=== PATIENT | female | born 1960 | race Caucasian/White ===

== ENCOUNTER → 2024-09-30 07:56 | Outpatient (REF) | payer OTHER, SELFPAY | LOC: WDC 07:56 | PROVIDERS: ATTENDING PHYSICIAN Nurse Practitioner Primary Care | DX: Z12.31 Encounter for screening mammogram for malignant neoplasm of breast (principal); M85.89 Other specified disorders of bone density and structure, multiple sites | CPT/HCPCS: 77063; 77067; 77080 ==

== ENCOUNTER → 2024-12-11 14:30 | Outpatient (REF) | payer OTHER, SELFPAY ==
[2024-12-11 15:36] LABS: ALT (SGPT) 47 U/L (0-35); AST (SGOT) 31 U/L (14-36); Albumin 4.7 g/dl (3.5-5.0); Alkaline Phosphatase 84 U/L (38-126); Blood Urea Nitrogen 23 mg/dl (7-17); Calcium 10.1 mg/dl (8.4-10.2); Carbon Dioxide 27 mmol/L (22-30); Chloride 107 mmol/L (98-107); Glucose 117 mg/dl (70-99); Potassium 3.9 mmol/L (3.5-5.1); Sodium 143 mmol/L (135-145); Total Bilirubin 0.6 mg/dl (0.2-1.3); eGFR > 60.00
== END ==
LOC: RAD 14:30
PROVIDERS: ATTENDING PHYSICIAN Nurse Practitioner Primary Care
DX: R79.89 Other specified abnormal findings of blood chemistry (principal); R06.09 Other forms of dyspnea; M79.89 Other specified soft tissue disorders; Z01.818 Encounter for other preprocedural examination
CPT/HCPCS: 36415; 71275; 80053; 93970; Q9967

== ENCOUNTER 2024-12-11 19:18 | Inpatient (IN) | payer OTHER, SELFPAY ==
[2024-12-11] VITALS (8 sets, daily range): BP systolic 149–193; BP diastolic 89–119; BMI 26.4; BMI 25.4
[2024-12-11 17:18] LABS: % Basophils 1.1 % (0-2); % Immature Granulocytes 0.2 % (0-0.5); % Lymphocytes 21.2 % (20.5-51.1); % Monocytes 8.7 % (1.7-9.3); % Neutrophils 66.8 % (42.2-75.2); Absolute Basophils 0.1 10^3/uL (0-0.2); Absolute Eosinophils 0.2 10^3/uL (0-0.7); Absolute Lymphocytes 1.8 10^3/uL (1.2-3.4); Absolute Monocytes 0.7 10^3/uL (0.1-0.6); Absolute Neutrophils 5.6 10^3/uL (1.4-6.5); Hemoglobin 12.6 g/dL (12.0-16.0); Mean Corp Hgb Conc. 34.1 g/dL (33.0-37.0); Mean Corpuscular Hgb 31.3 pg (27.0-31.0); Mean Platelet Volume 9.4 fL (7.4-10.4); Nucleated Red Blood Cells % 0 %; Platelet Count 314 10^3/uL (130-400); Red Blood Cell Count 4.02 10^6/uL (4.20-5.40); Red Cell Dist. Width 12.5 % (11.5-14.5); White Blood Cell Count 8.4 10^3/uL (4.8-10.8)
[2024-12-11 17:27] LABS: APTT 24.4 Sec (23.4-35.0); INR 0.94; PT 12.9 Sec (11.4-14.6)
--- NOTE | 2024-12-11 17:38 | ED.GENMED ---
History of Present Illness
<ILEANA Ordoñez - Last Filed: 12/11/24 18:17>
General
Chief Complaint: Breathing Problem
Source: patient
Exam Limitations: none
Time Seen by Provider: 12/11/24 17:38
Nursing documentation reviewed up to this point in time: agreed with
History of Present Illness
History of Present Illness:
Patient is a 64-year-old female who presents here for evaluation. Patient was sent from outpatient CAT scan.
Patient had an outpatient CAT scan today which showed multiple bilateral PE no right heart strain.
Patient recently was on a long trip to [facility] in the beginning of November. She has been short of breath for the past 2 weeks. She did have some pain to the right calf. She saw her family doctor who ordered testing. In addition to CAT scan today
patient had bilateral ultrasound of lower extremities which showed a positive thrombus within the gastrocnemius vein bilaterally. She denies any current shortness of breath. She reports she has noticed the shortness of breath mostly with exertion
walking up steps etc. No chest pain.
Past History
<ILEANA Ordoñez - Last Filed: 12/11/24 18:17>
Past History
ED Past Medical History: HTN, Hypothyroidism and Psychiatric
ED Past Surgical History: None
Social History
Tobacco: Former smoker
Alcohol: None
Drug: None
Personal:
Living: alone
Employment: Employed
Review of Systems
<ILEANA Ordoñez - Last Filed: 12/11/24 18:17>
Review of Systems
Allergies reviewed?: Yes
All Other Systems: ROS reviewed and negative except as documented in HPI and ROS
Constitutional: Reports no symptoms; Denies fever, fatigue or chills
Respiratory: Reports trouble breathing
Cardiac: Denies chest pain, palpitations or syncope
ABD/GI: Reports no symptoms
: Reports no symptoms
Musculoskeletal: Reports other (+ discomfort to right leg ; has had some swelling in right ankle )
Skin: Reports no symptoms
Neurological: Reports no symptoms
Psychiatric: Reports no symptoms
Phy Exam
<ILEANA Ordoñez - Last Filed: 12/11/24 18:17>
General Physical Exam
General Presentation: no apparent distress
General age: appears stated age
General Skin: warm and dry
General Habitus: normal
General Mental: alert
General Hydration: appears well hydrated
Cardiovascular Exam
Cardiovascular Exam: regular rate/rhythm, no murmur and normal peripheral pulses
Pulmonary Exam
Pulmonary Exam: lungs clear and no respiratory distress
Neurological Exam
Neurological Exam: alert and oriented x3
Musculoskeletal Exam
Musculoskeletal Exam: full ROM and other (+ strong pulses b/l l/e no obvious swelling )
Skin Exam
Skin Exam: normal color and warm/dry
Psychiatric Exam
Psychiatric Exam: normal mood/affect
Scores
<ILEANA Ordoñez - Last Filed: 12/11/24 18:17>
Heart Failure Risk
Heart Failure Risk Score: Not Applicable
Course
<ILEANA Ordoñez - Last Filed: 12/11/24 18:17>
Orders/Labs/Results
Orders:
Orders
12/11/24 16:58
Electrocardiogram (*1) Urgent
Reason for Study: Chest Pain
EKG- Treatment ONCE
12/11/24 17:09
Complete Blood Count/With Diff Urgent
Comprehensive Metabolic Panel Urgent
PT/INR [Prothrombin Time] Urgent
Is patient on Coumadin/Warfarin?: No
Comment: [email or web address]
PTT Urgent
12/11/24 17:55
Heparin 6,500 units IV NOW STA
Nursing to Place Non Medication Order As Directed
Physician Order: PTT 6 hours after initial start of Heparin infusion
12/11/24 18:00
Heparin 98337 Units/250 ml 25,000 units in 250 ml IV PER PROTOCOL
Weight to be used for heparin protocol in kilograms (kg):: 81
Protocol:: DVT/PE
PTT Goal Range to be used:: PTT 73 to 111 seconds
Order type:: Initial
INITIAL Infusion Dose (UNITS/KG/hr) & then follow protocol:: 18 units/kg/hr
Infusion Dose in UNITS/hr & then follow protocol (UNITS/hr):: 1,500
INFUSION RATE in mL/hr & then follow protocol (mL/hr):: 15
For DVT/PE algorithm, re-bolus for low PTT?: Yes
PTT less than or equal to 64 seconds:: Re-bolus 80 units/kg (max 10,000units). Increase by 300 units/hr
(+ 3mL/hr)
PTT 64.1 to 72.9 seconds:: Re-bolus 40 units/kg (max 5,000 units). Increase by 200 units/hr
(+ 2mL/hr)
PTT 73 to 111 seconds:: Target Range. No change in rate.
PTT 111.1 to 130.9 seconds:: Decrease rate by 200 units/hr (- 2 mL/hr)
PTT 131 to 199.9 seconds:: HOLD for 1 hr. Then decrease by 200 units/hr (- 2mL/hr)
PTT greater than or equal to 200 seconds:: HOLD for 2 hrs & Notify Provider. Then decrease by 300 units/hr
(- 3mL/hr)
Lab follow-up:: Each change, PTT q6h until 2 consecutive are therapeutic. Then
PTT daily.
12/11/24 18:12
Heparin 3,200 units IV PRN PRN
Heparin 6,500 units IV PRN PRN
Abnormal Lab Results
12/11/24
17:09
RBC 4.02 L 10^6/uL
(4.20-5.40)
MCH 31.3 H pg
(27.0-31.0)
Absolute Monos (auto) 0.7 H 10^3/uL
(0.1-0.6)
Chloride 108 H mmol/L
(98-107)
BUN 23 H mg/dl
(7-17)
Glucose 100 H mg/dl
(70-99)
ALT 47 H U/L
(0-35)
12/11/24 17:09
12/11/24 17:09
Vital Signs
Initial and Last Documented VS:
Initial Vital Signs
Temp Pulse Resp BP Pulse Ox
98.1 F 110 16 182/119 95
12/11/24 16:54 12/11/24 16:54 12/11/24 16:54 12/11/24 16:54 12/11/24 16:54
Last Documented Vital Signs
Temp Pulse Resp BP Pulse Ox
98.1 F 99 14 193/94 96
12/11/24 16:54 12/11/24 17:42 12/11/24 17:42 12/11/24 17:42 12/11/24 17:43
Plisse Machine Operator consulted with Physician
Plisse Machine Operator consulted with physician?: Yes
Name of Physician Consulted: ilda
<Fan Brush, DO - Last Filed: 12/11/24 18:13>
Orders/Labs/Results
Orders:
Orders
12/11/24 16:58
Electrocardiogram (*1) Urgent
Reason for Study: Chest Pain
EKG- Treatment ONCE
12/11/24 17:09
Complete Blood Count/With Diff Urgent
Comprehensive Metabolic Panel Urgent
PT/INR [Prothrombin Time] Urgent
Is patient on Coumadin/Warfarin?: No
Comment: [email or web address]
PTT Urgent
12/11/24 17:55
Heparin 6,500 units IV NOW STA
Nursing to Place Non Medication Order As Directed
Physician Order: PTT 6 hours after initial start of Heparin infusion
12/11/24 18:00
Heparin 11243 Units/250 ml 25,000 units in 250 ml IV PER PROTOCOL
Weight to be used for heparin protocol in kilograms (kg):: 81
Protocol:: DVT/PE
PTT Goal Range to be used:: PTT 73 to 111 seconds
Order type:: Initial
INITIAL Infusion Dose (UNITS/KG/hr) & then follow protocol:: 18 units/kg/hr
Infusion Dose in UNITS/hr & then follow protocol (UNITS/hr):: 1,500
INFUSION RATE in mL/hr & then follow protocol (mL/hr):: 15
For DVT/PE algorithm, re-bolus for low PTT?: Yes
PTT less than or equal to 64 seconds:: Re-bolus 80 units/kg (max 10,000units). Increase by 300 units/hr
(+ 3mL/hr)
PTT 64.1 to 72.9 seconds:: Re-bolus 40 units/kg (max 5,000 units). Increase by 200 units/hr
(+ 2mL/hr)
PTT 73 to 111 seconds:: Target Range. No change in rate.
PTT 111.1 to 130.9 seconds:: Decrease rate by 200 units/hr (- 2 mL/hr)
PTT 131 to 199.9 seconds:: HOLD for 1 hr. Then decrease by 200 units/hr (- 2mL/hr)
PTT greater than or equal to 200 seconds:: HOLD for 2 hrs & Notify Provider. Then decrease by 300 units/hr
(- 3mL/hr)
Lab follow-up:: Each change, PTT q6h until 2 consecutive are therapeutic. Then
PTT daily.
12/11/24 18:12
Heparin 3,200 units IV PRN PRN
Heparin 6,500 units IV PRN PRN
Abnormal Lab Results
12/11/24
17:09
RBC 4.02 L 10^6/uL
(4.20-5.40)
MCH 31.3 H pg
(27.0-31.0)
Absolute Monos (auto) 0.7 H 10^3/uL
(0.1-0.6)
Chloride 108 H mmol/L
(98-107)
BUN 23 H mg/dl
(7-17)
Glucose 100 H mg/dl
(70-99)
ALT 47 H U/L
(0-35)
12/11/24 17:09
12/11/24 17:09
Vital Signs
Initial and Last Documented VS:
Initial Vital Signs
Temp Pulse Resp BP Pulse Ox
98.1 F 110 16 182/119 95
12/11/24 16:54 12/11/24 16:54 12/11/24 16:54 12/11/24 16:54 12/11/24 16:54
Last Documented Vital Signs
Temp Pulse Resp BP Pulse Ox
98.1 F 99 14 193/94 96
12/11/24 16:54 12/11/24 17:42 12/11/24 17:42 12/11/24 17:42 12/11/24 17:43
<ILEANA Ordoñez - Last Filed: 12/11/24 18:17>
MDM/Problems Addressed
MDM/Problems Addressed:
Patient is a 64-year-old female from outpatient CAT scan sent for bilateral PEs and bilateral lower extremity DVTs. Patient presents awake alert she is no acute distress she is well-appearing and nontachycardic here Case discussed with ED physician
will order IV heparin and plan for admission.
<ILEANA Ordoñez - Last Filed: 12/11/24 18:17>
*Critical Care Note
Total Time (30-74mins, 75-104mins- exclusive of procedures): Not Applicable
ED Attending Note
<ILEANA Ordoñez - Last Filed: 12/11/24 18:17>
-
Portions of this chart may have been created with voice recognition software.� Occasional wrong word or��sound alike� substitutions may have occurred due to the inherent limitations of voice recognition software.
<Fan Brush DO - Last Filed: 12/11/24 18:13>
ED Attending Note
Patient seen and examined by attending physician: Yes
I performed the substantive portion of visit, reviewed & personally made and approve the management plan that is documented in note by myself or JEFF.: Yes
ED Attending Note:
I have seen and evaluated the patient with a [id number] encounter. I have spoken to the advance practicer provider and involved in the medical history, the physical exam, medical decision making.
Evaluation and management service: agree unless noted differently below.
Results interpretation: agree unless noted differently below.
Focused HPI: 64-year-old female presenting for evaluation of bilateral DVT and PEs. Patient had outpatient ultrasound and CT. For evaluation of leg pain and shortness of breath. She recently returned from a trip to [place].
Physical exam: Sitting bed comfortably. Mild tachycardia. Mild right calf tenderness
Medical Decision Making: Given bilateral PEs, will start heparin and admit. No evidence of heart strain on CT
Discharge Plan
Departure
Patient Disposition: Admit
Date of Disposition: 12/11/24
Time of Disposition: 18:16
Admit to: Telemetry
Admit to doctor: hospitalist
Presentation/result/management discussed w/ accepting MD/DO: Hospitalist
Patient with high blood pressure during this ER visit?: Yes
Condition: Fair
Covid-19: Not Applicable
Discharge Problem:
Pulmonary embolism, bilateral, bilateral dvt
Prescriptions:
No Action
amlodipine 2.5 mg Tablet
2.5 mg PO BID
acetaminophen 650 mg Tablet Extended Release
1,300 mg PO BIDPRN PRN (Reason: mild pain)
levothyroxine 88 mcg Tablet
88 mcg PO DAILY
calcium carbonate [Calcium 500] 500 mg calcium (1,250 mg) Tablet
500 mg PO DAILY
lisinopril 10 mg Tablet
10 mg PO DAILY
cholecalciferol (vitamin D3) [Vitamin D3] 50 mcg (2,000 unit) Tablet
50 mcg PO DAILY
Interventions
Interventions:
*Risk Screen - Suicide Last Done: 12/11/24 16:57
*General Assessment Last Done: 12/11/24 17:33
*Neglect/Abuse Screening Last Done: 12/11/24 16:57
*ED- Fall Risk Assessment Last Done: 12/11/24 17:33
*ED COVID-19 Vaccine History Last Done: 12/11/24 17:33
ED- Pulmonary Assessment Last Done: 12/11/24 17:43
Discharge Date and Time
Print Language: SAO TOMEAN
[2024-12-11 17:51] LABS: ALT (SGPT) 47 U/L (0-35); AST (SGOT) 36 U/L (14-36); Albumin 4.6 g/dl (3.5-5.0); Alkaline Phosphatase 104 U/L (38-126); Blood Urea Nitrogen 23 mg/dl (7-17); Calcium 9.9 mg/dl (8.4-10.2); Carbon Dioxide 25 mmol/L (22-30); Chloride 108 mmol/L (98-107); Estimated Creatinine Clearance 86 ml/min; Glucose 100 mg/dl (70-99); Potassium 4.2 mmol/L (3.5-5.1); Sodium 140 mmol/L (135-145); Total Bilirubin 0.7 mg/dl (0.2-1.3); Total Protein 6.8 g/dl (6.3-8.2); eGFR > 60.00
[2024-12-11] MEDS: HEPARIN 25000 UNITS/250 ML IV (18:19)
[2024-12-11] MEDS: HEPARIN 6500 UNITS IV (18:20)
--- NOTE | 2024-12-11 18:32 | HPS.HSE ---
Family Physician
-
Family Physician: Micki Berry
Chief Complaint
-
sob
History of Present Illness
64-year-old female With past medical history for hemochromatosis, hypertension, hypothyroidism who presents with sob For past 2 weeks. Patient recently was on a long trip to [facility] on November 30. She has been short of breath while she was there.
she was noted sob with exertion. she noted b/l LE edema,when she came back home. Patient denied any chest pain. Patient denied any headache, dizzy or syncope. Patient denied any fever chills. Patient denied any abdominal pain, nausea, vomiting or
diarrhea. Patient denied any dysuria hematuria. . Patient was evaluated by PCP, who ordered CT and ultrasound CT was positive for PE, duplex was positive for DVT
Patient was initiated on heparin drip. Admitting for further management
Medical History
Past Medical History
Past Medical History: Reports Other
Additional Past Medical History:
Depression
Hypertension
Hypothyroidism
Fatty liver
Hemochromatosis
Osteopenia
Past Surgical History: Reports Other
Additional Past Surgical History:
Right bunion surgery
Social History
Tobacco: Former Smoker
Alcohol: None
Drug: None
Living: With Family
Family History
Family History: Not pertinent
Allergies / Home Medications
Allergies reflects when Allergies were last updated in [employer].
Home Medications with original date entered in [employer]
Allergy/Medication List:
Allergies
Allergy/AdvReac Type Severity Reaction Status Date / Time
shellfish derived Allergy Intermediate Tongue Verified 10/04/20 12:00
Swelling
Sulfa (Sulfonamide Allergy Intermediate Unknown Verified 10/04/20 12:00
Antibiotics)
[Sulfa(Sulfonamide
Antibiotics)]
venom-honey bee Allergy Intermediate Hives Verified 10/04/20 12:00
[bee venom (honey bee)]
Penicillins Allergy Unknown Unknown Verified 10/04/20 12:00
Home Medications
acetaminophen 650 mg tablet,extended release 1,300 mg PO BIDPRN PRN mild pain 12/11/24
amlodipine 2.5 mg tablet 2.5 mg PO BID 12/11/24
calcium carbonate 500 mg PO DAILY 12/11/24
cholecalciferol (vitamin D3) 50 mcg (2,000 unit) tablet (Vitamin D3) 50 mcg PO DAILY 12/11/24
levothyroxine 88 mcg tablet 88 mcg PO DAILY 12/11/24
lisinopril 10 mg tablet 10 mg PO DAILY 12/11/24
Review of Systems
-
Constitutional: Reports No Symptoms
EENT: Reports No Symptoms
Respiratory: Reports Trouble Breathing
Cardiac: Reports No Symptoms
Abdomen/GI: Reports No Symptoms
: Reports No Symptoms
Musculoskeletal: Reports No Symptoms
Skin: Reports No Symptoms
Neurological: Reports No Symptoms
Endocrine: Reports No Symptoms
Hematologic/Lymphatic: Reports No Symptoms
Psych: Reports No Symptoms
Physical Exam
Vital Signs
Vital Signs
Temp Pulse Resp BP Pulse Ox
98.1 F 99 14 193/94 96
12/11/24 16:54 12/11/24 17:42 12/11/24 17:42 12/11/24 17:42 12/11/24 17:43
Physical Exam
General: Well Developed, Well Nourished and No Apparent Distress
HEENT: NormoCephalic, Moist mucous membranes and Atraumatic
Respiratory: Clear
Cardiac: S1/S2 and Regular Rhythm; No Murmur or Rub
GI: Soft, Non Tender, Non Distended and Normal Bowel Sounds; No Organomegaly
Rectal: Deferred by Provider
Musculoskeletal: No Clubbing, No Cyanosis and Other (Lower extremities edema)
Skin: No Rash
Neuro: AO x 3 and Nonfocal/grossly intact
Psych: Calm
Laboratory Results
-
12/11/24 17:09
12/11/24 17:09
Laboratory Results
PT 12.9 Sec (11.4-14.6) 12/11/24 17:09
INR 0.94 12/11/24 17:09
APTT 24.4 Sec (23.4-35.0) 12/11/24 17:09
Total Bilirubin 0.7 mg/dl (0.2-1.3) 12/11/24 17:09
AST 36 U/L (14-36) 12/11/24 17:09
ALT 47 U/L (0-35) H 12/11/24 17:09
Alkaline Phosphatase 104 U/L (38-126) 12/11/24 17:09
Data Reviewed
-
Diagnostic Radiology: Report Reviewed by me
CT Scan: Report Reviewed by me
Lab Data: Labs Reviewed by me
Impression/Plan
-
#Bilateral PE/bilateral DVT
-Heparin drip initiated in ER
-CT with impression of Multiple bilateral pulmonary emboli. Moderate clot burden. No evidence of right heart strain.
-Duplex with impression of positive for thrombus within the gastrocnemius veins bilaterally. The rest of the veins appear patent bilaterally.
#Hemochromatosis carrier
# Essential hypertension
-Norvasc, lisinopril continue with hold parameters
#Hypothyroidism
-Levothyroxine continued with hold parameters
#CODE status
-full code
--- NOTE | 2024-12-11 18:40 | W.PN.UPDATE ---
Update Note
Progress Note Update
Patient seen in conjunction with ILEAAN. I agree with the findings on history and physical. I concur with assessment and plan.
Briefly, this is a 64-year-old female with past medical history significant for hypertension, hypothyroid, heterozygous mutation for hemochromatosis, osteopenia presenting to the emergency department for treatment for pulmonary embolism.
Patient reported that she had travel to [facility] on November 30. The she started feeling shortness of breath and dyspnea on exertion. On arrival back she had bilateral lower extremity swelling and followed up with her PMD. She had some blood work and
had a prescription for a CT scan and ultrasound. She completed the ultrasound and CT scan today and she was found to have pulmonary embolism and close intake gastrocnemius veins bilaterally.
Here in the emergency department she was hypertensive to 190/94 with a pulse of 99 she was satting 96% on room air. She was afebrile. CBC was completely normal. Electrolytes BUN and creatinine were also normal. ECG showed normal sinus rhythm at
a rate of 94 without any ischemic changes.
The peripheral ultrasound shows thrombus within the gastrocnemius veins bilaterally. The rest of the veins appear patent bilaterally.
On CT scan with PE protocol she had multiple bilateral pulmonary emboli. There is moderate clot burden. No evidence of right heart strain.
Assessment and plan
This is a 64-year-old female with no prior history of venous thromboembolism who presents with multiple VTE events including bilateral gastrocnemius clots as well as bilateral multiple pulmonary embolism with moderate clot burden and no heart
strain. She is hemodynamically stable. She is not on supplemental oxygen. She does not have massive or submassive PE at this time.
PE�provoked pulmonary embolism, not massive or submassive. No right heart strain. Currently no detected peripheral edema
-Admit to telemetry
�Started on heparin drip, will continue heparin drip for now
-Will need at least 3 months of anticoagulation, oral anticoagulation to be determined in the morning
-Trend troponin, check bnp in am, if elevated will get a echocardiogram otherwise no indication for echocardiogram
-Continue amlodipine and lisinopril
�Continuous pulse ox measurement, pain control
CODE STATUS�full code
[2024-12-11] MEDS: NORVASC 2.5 MG PO (19:07)
[2024-12-11 19:30] LABS: Troponin I < 0.012 ng/ml
--- NOTE | 2024-12-11 20:45 | PTCARENOTE ---
Patient arrived from ED via stretcher to 338-1, able to ambulate with standby assist to bed from stretcher with no difficulties, tolerated well. Patient alert and oriented. Heparin drip running at 1500 units/hour, started in ED. PTT to be drawn
around 00:30am for next level. No complaints of pain at this time, slight SPRINGER present only with activity, otherwise patient states she feels better since coming in. Initiated on mitochondrial disorders counselor #6 - [facility] with [facility]. Own compression socks from home
removed for bedtime. Stat IV hydralazine provided per MD order, see MAR -- BPs elevated on admission. Patient states her BPs have been elevated since returning from her vacation. Call veliz in reach, will continue to monitor.
[2024-12-11] MEDS: APRESOLINE 10 MG IV (22:33)
[2024-12-12 01:07] LABS: APTT > 200 Sec (23.4-35.0)
--- NOTE | 2024-12-12 01:16 | PTCARENOTE ---
PTT resulted >200 at recheck following initiation of heparin drip. Per protocol orders, heparin placed on hold for 2 hours. ILEANA Velázquez notified. Will restart in 2 hours per protocol at lower rate of 1200 units/hour. Will monitor.
[2024-12-12 03:00] VITALS: BP 135/85
[2024-12-12] MEDS: SYNTHROID 88 MCG PO (06:32)
[2024-12-12 07:50] VITALS: BP 148/93
--- NOTE | 2024-12-12 08:10 | W.PN.HOSP.TC ---
Today's Communication/Plan
-
d/c
Assessment / Plan
Assessment / Plan
Gen: NAD, AAOx3.
Eyes: EOMI, PERRLA, no scleral icterus.
Neck: supple.
CV: RRR, +S1/S2, no m/r/g.
Resp: CTAB, no rales, wheezes, or rhonchi.
Abd: +BS, soft, NT, ND
Skin: No rashes. No LE edema
Neuro: CN 2-12 intact, non-focal.
Psych: Normal mood and affect.
CTA chest: Multiple bilateral pulmonary emboli. Moderate clot burden. No evidence of right heart strain.
B/L LE U/S: Examination is positive for thrombus within the gastrocnemius veins bilaterally. The rest of the veins appear patent bilaterally.
Acute PEs/DVTs:
-due to venostasis due to long flight
-Trop NEG
-currently on heparin gtt
-Saturating well on room air and hemodynamically stable
-Transition to Eliquis and discharge home
Other problems:
Hemochromatosis carrier
Essential hypertension: Continue Norvasc/lisinopril
Hypothyroidism: Continue Levoxyl
FULL/Eliquis
Medically cleared for d/c, case management aware.
Total time spent on d/c = 31 min. This included today's physical exam, progress note, review of laboratory and diagnostic data, preparation of discharge documents and prescriptions, and discussions about the pt's hospital course and discharge plan
with the patient and other medical translator involved in the patient's care.
Anticipated Discharge: Today
Subjective/Interval History
-
Date of Service: December 12, 2024
Denies chest pain or shortness of breath.
Objective Data
-
Labs:
Laboratory Results
12/12/24 12/12/24
00: 09:00
APTT > 200 H* Pending
Vital Signs:
Vital Signs
Temp Pulse Resp BP Pulse Ox
98.5 F 83 21 148/93 94
12/12/24 07:50 12/12/24 07:50 12/12/24 07:50 12/12/24 07:50 12/12/24 07:50
I&O
12/11/24 12/12/24 12/13/24
06:59 06:59 06:59
Intake Total 480 / 480
Balance 480 / 480
[2024-12-12 09:04] LABS: APTT 73.1 Sec (23.4-35.0)
[2024-12-12] MEDS: NORVASC 2.5 MG PO (09:35)
[2024-12-12] MEDS: VITAMIN D3 (cholecalciferol) 50 MCG PO (09:35)
[2024-12-12] MEDS: ZESTRIL 10 MG PO (09:35)
[2024-12-12] MEDS: OSCAL CAL 500 500 MG PO (09:36)
[2024-12-12] MEDS: ELIQUIS 10 MG PO (09:39)
--- NOTE | 2024-12-12 10:08 | CM ---
CM met with pt at bedside.
Pt reports living alone in a 2SH with no concerns. No DME. Ind with amb/adls. + [employer] [facility].
No HC or SNF history.
PCP is Micki Berry and pharmacy is [facility] on . [facility].
Discharge dispo: d/c home today no skilled needs. Family to transport.
--- NOTE | 2024-12-12 14:30 | W.DCSUMMARY ---
Discharge Summary
Discharge Data
Date of Admission: 12/11/24
Date of Discharge: 12/12/24
-
Pending Results: No
Hospital Course
Primary diagnoses:
Acute pulmonary emboli
Acute deep vein thrombosis
Secondary diagnoses:
Hemochromatosis carrier
Essential hypertension
Hypothyroidism
Consultants:
None
Imaging:
CTA chest: Multiple bilateral pulmonary emboli. Moderate clot burden. No evidence of right heart strain.
B/L LE U/S: Examination is positive for thrombus within the gastrocnemius veins bilaterally. The rest of the veins appear patent bilaterally.
Hospital course: 64-year-old female who presented with chief complaint of shortness of breath as outlined in the H&P done on admission. The patient had recently taken long flights. She was found to have bilateral PEs and DVTs as above. Troponin
was negative. She was initially placed on a heparin drip. She did not require supplemental oxygen and was hemodynamically stable. She was transitioned to Eliquis and discharged home. Unexpected rapid recovery.
Discharge Plan
-
Patient Disposition: Home (Routine Discharge)
Discharge Diagnosis/Procedures: Bilateral pulmonary emboli and deep vein thrombosis
Condition: Good
Diet: Low Cholesterol and Low Sodium
Activity: No strenuous activity
Driving Restrictions: As prior to admission
Referrals:
Micki Berry CRNP [Family Provider] - in less than 1 week
Prescriptions:
New
Eliquis 5 mg tablet
5 mg PO BID Qty: 72 0RF
Rx Instructions:
10mg twice daily for 13 more doses and then 5mg twice daily thereafter
Continued
amlodipine 2.5 mg Tablet
2.5 mg PO BID
acetaminophen 650 mg Tablet Extended Release
1,300 mg PO BIDPRN PRN (Reason: mild pain)
levothyroxine 88 mcg Tablet
88 mcg PO DAILY
calcium carbonate 500 mg calcium (1,250 mg) Tablet
500 mg PO DAILY
lisinopril 10 mg Tablet
10 mg PO DAILY
cholecalciferol (vitamin D3) [Vitamin D3] 50 mcg (2,000 unit) Tablet
50 mcg PO DAILY
Discharge Orders:
Discharge Patient (As Directed); Ordered 12/12/24
Ordered By: John Silva
Discharge Date and Time
Discharge Date/Time: 12/12/24 10:37
Print Language: SERBIAN
[2024-12-12 18:30] LABS: Hepatitis C Antibody Negative (Negative)
== END 2024-12-12 10:37 | disposition home or self-care (01) | DRG 299 ==
LOC: 3 WEST ACU 19:18
PROVIDERS: Registered Nurse; ADMITTING PHYSICIAN Internal Medicine; ATTENDING PHYSICIAN Internal Medicine; EMERGENCY PHYSICIAN Student in an Organized Health Care Education/Training Program; FAMILY PHYSICIAN Nurse Practitioner Primary Care
DX: I82.463 Acute embolism and thrombosis of calf muscular vein, bilateral (principal); I26.99 Other pulmonary embolism without acute cor pulmonale; Z79.890 Hormone replacement therapy; E83.119 Hemochromatosis, unspecified; Z14.8 Genetic carrier of other disease; I10 Essential (primary) hypertension; E03.9 Hypothyroidism, unspecified; F32.A Depression, unspecified; K76.0 Fatty (change of) liver, not elsewhere classified; M85.80 Other specified disorders of bone density and structure, unspecified site; Z87.891 Personal history of nicotine dependence; Z88.2 Allergy status to sulfonamides; Z88.0 Allergy status to penicillin
CPT/HCPCS: 80053; 84484; 85025; 85610; 85730; 86803; 93005; 96365; 96366; 99284

== ENCOUNTER → 2025-02-04 07:16 | Outpatient (REF) | payer OTHER, SELFPAY | LOC: RCS 07:16 | PROVIDERS: ATTENDING PHYSICIAN Nurse Practitioner Primary Care; FAMILY PHYSICIAN Internal Medicine Geriatric Medicine | DX: I10 Essential (primary) hypertension (principal) | CPT/HCPCS: 93005 ==

== ENCOUNTER → 2025-02-24 15:02 | Outpatient (REF) | payer OTHER, SELFPAY | LOC: RCS 15:02 | PROVIDERS: ATTENDING PHYSICIAN Nurse Practitioner Primary Care | DX: R06.09 Other forms of dyspnea (principal); R94.31 Abnormal electrocardiogram [ECG] [EKG]; I26.99 Other pulmonary embolism without acute cor pulmonale; I10 Essential (primary) hypertension | CPT/HCPCS: 93017; 93306 ==